=== PATIENT | male | born 1960 | race Two or more races ===

== ENCOUNTER → 2018-09-30 08:05 | Outpatient (CLI) | payer OTHER, SELFPAY ==
--- NOTE | 2018-09-30 08:11 | US_ITS ---
US soft tissue head and neck ITS.REASON: NECK MASS INDICATION: Palpable left-sided neck mass ORDERING PHYSICIAN: Davi Luke MD PATIENT AGE: 58 years Comparison: None FINDINGS: There is a hypoechoic somewhat irregular soft tissue mass in the left neck corresponding to the palpable abnormality measuring approximately 4.5 x 2.3 x 3 cm. Is difficult to determine the origin of this mass on the images submitted. The lesion does appear to contain some calcifications. This does not appear to be associated with the parotid or the submandibular gland and is along the anterior aspect of the thyroid gland. Cannot definitely exclude thyroid etiology from these images. Suggest CT of the neck without and with contrast for more thorough evaluation. IMPRESSION: Solid irregular hypoechoic left neck mass with some calcifications suspicious for neoplasm. Suggest CT of the neck without and with contrast for more thorough evaluation
== END ==
PROVIDERS: PCP Internal Medicine Adolescent Medicine; Visit Provider Internal Medicine Adolescent Medicine
DX: R22.1 Localized swelling, mass and lump, neck (principal)
CPT/HCPCS: 76536

== ENCOUNTER → 2018-10-14 12:04 | Outpatient (CLI) | payer OTHER, SELFPAY ==
[2018-10-14 12:27] LABS: Blood Urea Nitrogen 18 mg/dL (7-18); Creatinine,Serum 0.91 mg/dL (0.70-1.30); Estimated Glomerular Filt Rate 86 ml/min (>60); GFR (African American) 104 ML/MIN (>60)
--- NOTE | 2018-10-14 12:28 | CT_ITS ---
CT soft tissue neck wo/w con INDICATION: Palpable left-sided neck mass, abnormal ultrasound ITS.REASON: NECK MASS ORDERING PHYSICIAN: Davi Luke MD PATIENT AGE: 58 years COMPARISON: 09/30/2018 TECHNIQUE: Axial images are obtained without and with 75 mL Isovue-370. Sagittal and coronal reformatted images are reviewed as well. All CT scans at the facility use one or more dose reduction, viz: automated exposure control, ma/kV adjustment per patient size (including targeted exams where dose is matched to indication, i.e. head), or iterative reconstruction technique. FINDINGS: There is a 2.7 x 2.8 x 2 cm area of isoattenuation involving the left lobe of the thyroid gland with the area of coarse calcification posteriorly which measures 1 cm. This corresponds to the palpable abnormality and is consistent with a thyroid nodule/mass. No significant enhancement. No associated adenopathy. There are scattered small nodes within the jugulodigastric region on both sides which are nonspecific. The nasopharynx, oropharynx, and hypopharynx and laryngeal region have an unremarkable appearance. The parotid and submandibular glands are unremarkable. The epiglottis has an unremarkable appearance. There are degenerative changes in the cervical spine. The lung apices are clear. IMPRESSION: Palpable abnormality of the neck corresponds to a thyroid mass. This has a somewhat concerning appearance on the ultrasound. Fine-needle aspiration with sonographic guidance suggested for further evaluation.
== END ==
PROVIDERS: Visit Provider Internal Medicine Adolescent Medicine
DX: R22.1 Localized swelling, mass and lump, neck (principal)
CPT/HCPCS: 36415; 70492; 82565; 84520; Q9967

== ENCOUNTER → 2019-01-15 07:38 | Outpatient (CLI) | payer OTHER, SELFPAY ==
[2019-01-15 09:48] LABS: Chol/HDL Ratio 3.5 (1-3.5); Cholesterol 207 mg/dL (140-200); HDL Cholesterol 60 mg/dL (27-67); LDL Cholesterol 121 mg/dL (0-130); Triglycerides 130 mg/dL (30-200); VLDL Cholesterol 26 mg/dL (0-40)
[2019-01-15 09:58] LABS: Alanine Aminotransferase 36 U/L (12-78); Albumin/Globulin Ratio 1.2 (1.1-1.8); Alkaline Phosphatase 93 U/L (46-116); Anion Gap 13.4 mEq/L (5-15); Aspartate Amino Transferase 16 U/L (15-37); Bilirubin,Total 0.7 mg/dL (0.2-1.0); Blood Urea Nitrogen 18 mg/dL (7-18); Calcium 8.9 mg/dL (8.5-10.1); Carbon Dioxide 27 mmol/L (21.0-32.0); Chloride 104 mmol/L (98-107); Creatinine,Serum 0.95 mg/dL (0.70-1.30); Estimated Glomerular Filt Rate 82 ml/min (>60); Free T4 (Free Thyroxine) 1.03 ng/dl (0.76-1.46); GFR (African American) 99 ML/MIN (>60); Globulin 3.4 gm/dl (1.3-3.2); Glucose 101 mg/dL (74-106); Potassium 4.4 mmoL/L (3.5-5.1); Sodium 140 mmol/L (136-145); Thyroid Stimulating Hormone 0.26 uIU/ml (0.358-3.740); Total Protein,Serum 7.4 gm/dL (6.4-8.2)
[2019-01-17 16:45] LABS: Thyroglobulin IMA CHARGE YES; Thyroglobulin Level <1.0 IU/mL (0.0-0.9)
== END ==
PROVIDERS: PCP Internal Medicine Adolescent Medicine; Visit Provider Internal Medicine Endocrinology, Diabetes & Metabolism
DX: E89.0 Postprocedural hypothyroidism (principal); E78.49 Other hyperlipidemia; I10 Essential (primary) hypertension; Z85.850 Personal history of malignant neoplasm of thyroid
CPT/HCPCS: 36415; 80053; 80061; 84436; 84439; 84443; 86800

== ENCOUNTER → 2019-11-22 12:39 | Outpatient (CLI) | payer OTHER, SELFPAY ==
[2019-11-22 13:33] LABS: Basophils # 0.1 K/mm3 (0-0.2); Basophils % 1.6 % (0.1-2.0); Hematocrit 40.2 % (42.0-52.0); Hemoglobin 13.3 g/dL (14.1-18.0); Lymphocytes # 0.4 K/mm3 (0.7-4.5); Lymphocytes % 13.1 % (10-50); Mean Corpuscular HGB Conc 33.2 g/dL (31.8-35.4); Mean Corpuscular Hemoglobin 29.6 pg (27.0-31.2); Mean Corpuscular Volume 89.1 fl (80-94); Mean Platelet Volume 7.2 fl (7.4-10.4); Monocytes # 0.6 K/mm3 (0.1-1.0); Monocytes % 18.3 % (1.7-9.3); Neutrophils % 66.1 % (37.0-80.0); Platelet Count 157 K/mm3 (142-424); Red Blood Count 4.51 M/mm3 (4.60-6.20); Red Cell Distribution Width 13.3 % (11.5-17.5)
[2019-11-22 14:24] LABS: Alanine Aminotransferase 20 U/L (12-78); Albumin Level 3.9 gm/dL (3.4-5.0); Albumin/Globulin Ratio 1.3 (1.1-1.8); Alkaline Phosphatase 85 U/L (46-116); Aspartate Amino Transferase 15 U/L (15-37); Bilirubin,Total 0.5 mg/dL (0.2-1.0); Blood Urea Nitrogen 12 mg/dL (7-18); Calcium 8.5 mg/dL (8.5-10.1); Carbon Dioxide 28 mmol/L (21.0-32.0); Chloride 103 mmol/L (98-107); Creatinine,Serum 0.85 mg/dL (0.70-1.30); Estimated Glomerular Filt Rate 93 ml/min (>60); GFR (African American) 112 ML/MIN (>60); Glucose 89 mg/dL (74-106); Sodium 140 mmol/L (136-145); Thyroid Stimulating Hormone 0.01 uIU/ml (0.358-3.740); Total Protein,Serum 6.9 gm/dL (6.4-8.2)
== END ==
PROVIDERS: Visit Provider Nurse Practitioner Family
DX: R50.9 Fever, unspecified (principal); C73 Malignant neoplasm of thyroid gland; E89.0 Postprocedural hypothyroidism
CPT/HCPCS: 36415; 80053; 84443; 85025

== ENCOUNTER → 2021-07-13 10:49 | Outpatient (CLI) | payer OTHER, SELFPAY ==
[2021-07-13 15:16] LABS: Anion Gap 12.6 mEq/L (5-15); Blood Urea Nitrogen 19 mg/dl (9-20); Calcium 9.1 mg/dl (8.4-10.2); Carbon Dioxide 27 mmol/L (22.0-30.0); Chloride 105 mmol/L (98-107); Chol/HDL Ratio 3.2 (1-3.5); Cholesterol 204 mg/dl (140-200); Estimated Glomerular Filt Rate 99 ml/min (>60); GFR (African American) 120 ML/MIN (>60); Glucose 98 mg/dl (74-100); HDL Cholesterol 64 mg/dl (40-60); Potassium 4.6 mmoL/L (3.5-5.1); Sodium 140 mmol/L (136-145); Triglycerides 181 mg/dl (30-150); VLDL Cholesterol 36 mg/dL (0-40)
[2021-07-13 15:27] LABS: Direct LDL Cholesterol 94.88 mg/dL (100-129)
== END ==
PROVIDERS: Visit Provider Internal Medicine Adolescent Medicine
DX: I10 Essential (primary) hypertension (principal)
CPT/HCPCS: 36415; 80048; 80061

== ENCOUNTER 2023-08-14 10:48 | Day surgery (SDC) | payer OTHER, SELFPAY ==
[2023-08-11 14:11] VITALS: BMI 27.1
[2023-08-14 11:00] VITALS: BP 125/60; PULSE 68; RESP 16; TEMP 36.2; O2SAT 98
--- NOTE | 2023-08-14 11:15 | EXP.ANES.CKL ---
[facility] Disclaimer: The information contained in this section may have been updated after the patient was seen, as this information can be updated by other users. Medical History Lung cancer Prostate cancer Thyroid cancer Surgical History History of local excision of skin lesion Hx of prostatectomy Hx of total thyroidectomy Family History Other Family history of TIAs Family history of myocardial infarction Prostate cancer Social History Smoking Status: Former smoker alcohol intake: current substance use type: denies use current occupational status: employed Travel in the last 8 weeks: Inside the [place] caffeine: Yes [facility] Anesthesia Checklist Patient Identification Patient Identification: Arm Band Structural Data Admitted From: Home Planned Operative Procedure/s: Colonoscopy Consent for Planned Operative Procedure(s) Verified: Yes Verified Documents: Surgical Consent and History and Physical NPO Status Verified Time NPO: 00:00 Additional verifications Anesthesia Reactions: No Airway Assessment Mallampati Score:: Class II C-Spine Mobility Assessed: Yes TMJ Mobility Assessed: Yes Dentition: Edentulous Neurological Assessment Level of Consciousness: Awake and Alert Anesthesia Plan Anesthesia Risk discussed: Yes Anesthesia Plan: Verified ASA Class: II Anesthesia Type: MAC
[2023-08-14 11:32] VITALS: O2SAT 99
[2023-08-14 11:56] VITALS: BP 103/53; PULSE 53; RESP 17; TEMP 36.2; O2SAT 97
--- NOTE | 2023-08-14 11:56 | HMH.SCOPE ---
Procedure: Date: 08/14/23 Patient Date of :: 1960 Procedure Performed:: Total colonoscopy to terminal ileum with polypectomy using biopsy forceps Indications:: 63-year-old male with history of of thyroid, prostate, lung cancer. He did previously undergo colonoscopy years ago. He believes he had a polyp removed. He states that oncologist had recommended colonoscopy. He was scheduled for surveillance colonoscopy. Patient does give a history consistent with some hemorrhoid prolapse with bowel movements. Performing Provider:: Jorge Luis Stone MD Referring Provider:: Ted Howard MD Sedation:: MAC sedation Procedure:: Patient history was obtained and appropriate physical examination was performed. Patient's medications and allergies were reviewed. Informed consent was obtained after explaining the benefits, alternatives, and risks of the procedure including, but not limited to, bleeding, perforation, missed lesions, and adverse reaction to anesthesia medications. Patient was transported to endoscopy procedure room. Patient was connected to monitoring devices. Throughout the procedure the patient's blood pressure, pulse, and oxygen saturations were monitored continuously. Patient identification and planned procedure were verified by the staff. Patient was positioned in lateral decubitus position. Digital anorectal exam was performed. Variable stiffness Olympus colonoscope was inserted and advanced under direct visualization to the cecum. Adequacy of the colonic preparation was noted. The colonoscope was advanced a short distance into the terminal ileum. The colonoscope was then slowly withdrawn while carefully examining the color, texture, anatomy, and integrity of the mucosoa circumferentially. Within the rectum retroflexion was performed. Colonoscope was then withdrawn. . Colonic preparation was excellent. There was a tiny diminutive polyp in the distal sigmoid removed with cold biopsy forceps. Retroflexion within the rectum revealed minor internal prolapsing hemorrhoids. . Findings:: Diminutive distal sigmoid polyp Prolapsing hemorrhoids Recommendations:: Repeat colonoscopy pending pathology. Likely 5 to 7 years Complications:: None immediate Estimated blood obtained (mL): 1 Colonoscopy Component Colonoscopy Component Was a colonoscopy performed during today's procedure?: Yes Recommended follow up colonoscopy of at least 10 years?: No If no, follow up colonoscopy recommended in ___ years?: 5-7 Reason for not recommending >/= 10 yr follow-up interval?: Polyp
[2023-08-14 12:06] VITALS: BP 119/77; PULSE 56; RESP 16; O2SAT 98
[2023-08-14 12:16] VITALS: BP 138/88; PULSE 54; RESP 17; O2SAT 98
[2023-08-14 12:26] VITALS: BP 155/92; PULSE 56; RESP 17; O2SAT 99
== END 2023-08-14 12:30 | disposition home or self-care (01) ==
PROVIDERS: PCP Internal Medicine Adolescent Medicine; Visit Provider Surgery
PROC: 0DJD8ZZ Inspection of Lower Intestinal Tract, Via Natural or Artificial Opening Endoscopic (ICD-10-PCS; CPT 45380; principal; 2023-08-14 11:30)
DX: Z12.11 Encounter for screening for malignant neoplasm of colon (principal); Z86.010 Personal history of colon polyps; Z85.850 Personal history of malignant neoplasm of thyroid; Z85.118 Personal history of other malignant neoplasm of bronchus and lung; K64.8 Other hemorrhoids; K63.5 Polyp of colon
CPT/HCPCS: 45380; J2704

== ENCOUNTER 2023-08-23 11:05 | Emergency (ER) | payer OTHER, SELFPAY ==
[2023-08-23 11:07] VITALS: BP 139/67; PULSE 63; RESP 20; TEMP 36.7; O2SAT 98; BMI 28.1
--- NOTE | 2023-08-23 11:13 | HMH.EDGENADL ---
Discharge Plan Disposition Patient Disposition: Home, Self-Care Condition: Good Prescriptions Prescriptions: New dibucaine [Hemorrhoidal-Analgesic] 1 % ointment 1 applic topical QID Qty: 30 0RF No Action multivitamin Tablet 1 tab PO DAILY loperamide 2 mg Capsule 2 mg PO Q4H PRN (Reason: Diarrhea) Rx Instructions: administer after each loose stool until symptoms controlled; do not exceed 8 mg per 24 hrs pravastatin 40 mg Tablet 40 mg PO DAILY doxazosin 8 mg Tablet 8 mg PO HS amlodipine 10 mg Tablet 10 mg PO DAILY levothyroxine 150 mcg Tablet 150 mcg PO DAILY labetalol 300 mg Tablet 300 mg PO BID losartan 100 mg Tablet 100 mg PO DAILY sorafenib [Nexavar] 200 mg Tablet 200 mg PO BID omeprazole 20 mg Tablet,Delayed Release (Dr/Ec) 20 mg PO DAILY aspirin 81 mg Capsule 81 mg PO DAILY Referrals Follow up/Referrals: Ted Howard MD [Primary Care Provider] - See instructions Activity Restrictions/Add. Instructions Additional Instructions/Restrictions: We will message Dr. Stone's office to try to reschedule your appointment, I would recommend you call his office as well. I have prescribed prescription strength hemorrhoid ointment. Please use as needed. Please return with any new or worsening symptoms. Clinical Impressions Clinical Impression: Hemorrhoid thrombosis Instructions Patient Instructions: Hemorrhoids, DI for Hemorrhoids Discharge ED Provider: Nathaniel Aguilar Adult HPI General Chief complaint: PAIN Stated complaint: Hemorrhoid Time Seen by Provider: 08/23/23 11:13 History of Present Illness HPI narrative: The patient presents with a chief complaint of a painful hemorrhoid. They report having pushed it back in this morning and recently had a colonoscopy done with Dr. Rosario, during which a polyp was identified but not removed. The patient has a history of dealing with this issue and is currently on chemotherapy pills. They deny taking any blood thinners but mention that Nixivir, which they are taking, has blood-thinning properties. The patient's oncologist team at [facility] advised stopping the medication 10 days prior and 13 days after any potential hemorrhoid removal procedure. Dr. Rosario did not recommend removing the hemorrhoid, stating it was not that large. The patient reports experiencing pain and feeling nauseous this morning due to the discomfort caused by the hemorrhoid. They mention that the size of the hemorrhoid has increased significantly today. The patient denies any other symptoms such as bleeding, fever, or chills. They have no known allergies to medications. Related Data Home Medications Medication Instructions Recorded Confirmed amlodipine 10 mg tablet 10 mg PO DAILY bp 08/14/23 08/14/23 aspirin 81 mg capsule 81 mg PO DAILY Blood Thinner 08/14/23 08/14/23 doxazosin 8 mg tablet 8 mg PO HS . 08/14/23 08/14/23 labetalol 300 mg tablet 300 mg PO BID bp 08/14/23 08/14/23 levothyroxine 150 mcg tablet 150 mcg PO DAILY thyroid 08/14/23 08/14/23 loperamide 2 mg capsule 2 mg PO Q4H PRN Diarrhea 08/14/23 08/14/23 losartan 100 mg tablet 100 mg PO DAILY bp 08/14/23 08/14/23 multivitamin 1 tab PO DAILY Supplement 08/14/23 08/14/23 omeprazole 20 mg tablet,delayed 20 mg PO DAILY gerd 08/14/23 08/14/23 release pravastatin 40 mg tablet 40 mg PO DAILY Cholesterol 08/14/23 08/14/23 sorafenib 200 mg tablet (Nexavar) 200 mg PO BID chemo 08/14/23 08/14/23 Previous Rx's Medication Instructions Recorded dibucaine 1 % topical ointment 1 applic topical QID #30 grams 08/23/23 (Hemorrhoidal-Analgesic) Allergies Allergy/AdvReac Type Severity Reaction Status Date / Time No Known Allergies Allergy Verified 08/14/23 10:57 [facility] Disclaimer: The information contained in this section may have been updated after the patient was seen, as this information can be updated by other users. Medical Vt
--- NOTE | 2023-08-23 11:15 | PC.NURSE ---
Pt placed in a gown and given warm blankets for comfort
[2023-08-23 11:23] VITALS: BP 123/61; PULSE 63; O2SAT 97
--- NOTE | 2023-08-23 11:34 | PC.NURSE ---
Dr. Aguilar at bedside for exam
--- NOTE | 2023-08-23 12:13 | PC.NURSE ---
Dr. Aguilar at bedside discussing POC and d/c
[2023-08-23 12:16] VITALS: BP 133/91; PULSE 68; RESP 18; TEMP 36.7; O2SAT 98
== END 2023-08-23 12:16 | disposition home or self-care (01) ==
PROVIDERS: Emergency Provider Emergency Medicine; PCP Internal Medicine Adolescent Medicine
DX: K64.5 Perianal venous thrombosis (principal); R11.0 Nausea; F17.210 Nicotine dependence, cigarettes, uncomplicated; C80.1 Malignant (primary) neoplasm, unspecified; C79.89 Secondary malignant neoplasm of other specified sites; Z92.21 Personal history of antineoplastic chemotherapy
CPT/HCPCS: 99283

== ENCOUNTER 2024-04-18 07:00 | Outpatient (RCR) | payer OTHER, SELFPAY ==
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
== END 2024-04-20 14:00 | disposition home or self-care (01) ==
LOC: PT 07:00
PROVIDERS: Visit Provider Internal Medicine Adolescent Medicine
DX: M54.9 Dorsalgia, unspecified (principal); M54.6 Pain in thoracic spine
CPT/HCPCS: 20560; 97010; 97110; 97112; 97140; 97163

== ENCOUNTER 2024-07-10 21:19 | Emergency (ER) | payer OTHER, SELFPAY ==
[2024-07-10 21:19] VITALS: BP 139/92; PULSE 76; RESP 16; TEMP 36.6; O2SAT 98; BMI 26.6
[2024-07-10 21:30] VITALS: BP 143/89; PULSE 78; O2SAT 96
--- NOTE | 2024-07-10 21:32 | HMH.EDGENADL ---
Discharge Plan Disposition Patient Disposition: Home, Self-Care Condition: Good Prescriptions Prescriptions: No Action multivitamin Tablet 1 tab PO DAILY loperamide 2 mg Capsule 2 mg PO Q4H PRN (Reason: Diarrhea) Rx Instructions: administer after each loose stool until symptoms controlled; do not exceed 8 mg per 24 hrs pravastatin 40 mg Tablet 40 mg PO DAILY doxazosin 8 mg Tablet 8 mg PO HS amlodipine 10 mg Tablet 10 mg PO DAILY levothyroxine 150 mcg Tablet 150 mcg PO DAILY labetalol 300 mg Tablet 300 mg PO BID losartan 100 mg Tablet 100 mg PO DAILY sorafenib [Nexavar] 200 mg Tablet 200 mg PO BID omeprazole 20 mg Tablet,Delayed Release (Dr/Ec) 20 mg PO DAILY aspirin 81 mg Capsule 81 mg PO DAILY dibucaine [Hemorrhoidal-Analgesic] 1 % ointment 1 applic topical QID Qty: 30 0RF Referrals Follow up/Referrals: Ted Howard MD [Primary Care Provider] - See instructions Activity Restrictions/Add. Instructions Additional Instructions/Restrictions: You were evaluated in the ER and are appropriate for discharge at this time. Take all your home medications as previously prescribed, follow-up as soon as possible with oncology as well as with your primary care doctor. Return to the ER with any new, worsening, or otherwise concerning symptoms. Clinical Impressions Clinical Impression: Right-sided headache, Medication side effect Print Language Print Language: Greek Discharge ED Provider: Gibran Gonzales General Adult HPI <BING Daniel - Last Filed: 07/10/24 22:52> General Chief complaint: Dizziness Stated complaint: Dizziness Time Seen by Provider: 07/10/24 21:31 History of Present Illness HPI narrative: Patient presents for evaluation of dizziness and a headache. Patient has a past medical history of widely metastatic poorly differentiated thyroid cancer currently under the care of the [facility]. Patient however reports that he was his normal state of health most of the day and approximately an hour to 2 hours prior to arrival began feeling very very hot diaphoretic followed by a right-sided headache that he believes originates from the right side of his neck. He also reports that his vision got blurry bilaterally during this episode but that is now resolved. Patient did have an MRI approximately 4 months ago to assess for progression of disease intracranially which was reportedly clean. He denies fever chills hemoptysis hematochezia melena vomiting or diarrhea blood was nauseated due to the pain. Related Data Home Medications ?Medication ?Instructions ?Recorded ?Confirmed amlodipine 10 mg tablet 10 mg PO DAILY bp 08/14/23 08/14/23 aspirin 81 mg capsule 81 mg PO DAILY Blood Thinner 08/14/23 08/14/23 doxazosin 8 mg tablet 8 mg PO HS . 08/14/23 08/14/23 labetalol 300 mg tablet 300 mg PO BID bp 08/14/23 08/14/23 levothyroxine 150 mcg tablet 150 mcg PO DAILY thyroid 08/14/23 08/14/23 loperamide 2 mg capsule 2 mg PO Q4H PRN Diarrhea 08/14/23 08/14/23 losartan 100 mg tablet 100 mg PO DAILY bp 08/14/23 08/14/23 multivitamin 1 tab PO DAILY Supplement 08/14/23 08/14/23 omeprazole 20 mg tablet,delayed 20 mg PO DAILY gerd 08/14/23 08/14/23 release pravastatin 40 mg tablet 40 mg PO DAILY Cholesterol 08/14/23 08/14/23 sorafenib 200 mg tablet (Nexavar) 200 mg PO BID chemo 08/14/23 08/14/23 Previous Rx's ?Medication ?Instructions ?Recorded dibucaine 1 % topical ointment 1 applic topical QID #30 grams 08/23/23 (Hemorrhoidal-Analgesic) Allergies Allergy/AdvReac Type Severity Reaction Status Date / Time No Known Allergies Allergy Verified 08/14/23 10:57 [facility] <BING Daniel - Last Filed: 07/10/24 22:52> [facility] Disclaimer: The information contained in this section may have been updated after the patient was seen, as this information can be updated by other users. Medical History (Updated 07/11/24 @
--- NOTE | 2024-07-10 21:44 | CT_ITS ---
PROCEDURE INFORMATION: Exam: CTA Head With Contrast, Arteriography Exam date and time: 07/10/2024 11:07 PM Age: 64 years old Clinical indication: Pain; Headache; Additional info: Headache, metastatic thyroid cancer TECHNIQUE: Imaging protocol: Computed tomographic angiography of the head with contrast. Exam focused on the arteries. 3D rendering (Not supervised by radiologist): MIP and/or 3D reconstructed images were created by the technologist. Radiation optimization: All CT scans at this facility use at least one of these dose optimization techniques: automated exposure control; mA and/or kV adjustment per patient size (includes targeted exams where dose is matched to clinical indication); or iterative reconstruction. Contrast material: ISOUVE 370; Contrast volume: 80 ml; Contrast route: INTRAVENOUS (IV); COMPARISON: CT ANGIO HEAD 07/10/2024 11:07 PM FINDINGS: ANTERIOR CIRCULATION: Right internal carotid artery: Intracranial segment is patent with no significant stenosis. No aneurysm. Right middle cerebral artery: No occlusion or significant stenosis. No aneurysm. Right anterior cerebral artery: No occlusion or significant stenosis. No aneurysm. Left internal carotid artery: Intracranial segment is patent with no significant stenosis. No aneurysm. Left middle cerebral artery: No occlusion or significant stenosis. No aneurysm. Left anterior cerebral artery: No occlusion or significant stenosis. No aneurysm. POSTERIOR CIRCULATION: Right vertebral artery: No occlusion or significant stenosis. No aneurysm. Left vertebral artery: No occlusion or significant stenosis. No aneurysm. Basilar artery: No occlusion or significant stenosis. No aneurysm. Right posterior cerebral artery: No occlusion or significant stenosis. No aneurysm. Left posterior cerebral artery: No occlusion or significant stenosis. No aneurysm. Brain: No definite mass, mass effect, or midline shift. Cerebral ventricles: No ventriculomegaly. Bones/joints: Unremarkable. No acute fracture. Soft tissues: Unremarkable. IMPRESSION: No large vessel stenosis or occlusion.
--- NOTE | 2024-07-10 21:44 | CT_ITS ---
PROCEDURE INFORMATION: Exam: CT Head Without Contrast Exam date and time: 07/10/2024 10:50 PM Age: 64 years old Clinical indication: Pain; Headache; Additional info: Headache, metastatic thyroid cancer TECHNIQUE: Imaging protocol: Computed tomography of the head without contrast. Radiation optimization: All CT scans at this facility use at least one of these dose optimization techniques: automated exposure control; mA and/or kV adjustment per patient size (includes targeted exams where dose is matched to clinical indication); or iterative reconstruction. COMPARISON: [facility] soft tissue head and neck 09/30/2018 8:11 AM FINDINGS: Brain: Normal. No hemorrhage. Unremarkable white matter. No mass effect. Cerebral ventricles: No ventriculomegaly. Paranasal sinuses: Visualized sinuses are unremarkable. No fluid levels. Mastoid air cells: Visualized mastoid air cells are well aerated. Bones: Unremarkable. No acute fracture. Soft tissues: Unremarkable. IMPRESSION: No acute intracranial abnormality.
--- NOTE | 2024-07-10 21:44 | CT_ITS ---
PROCEDURE INFORMATION: Exam: CTA Neck With Contrast Exam date and time: 07/10/2024 11:07 PM Age: 64 years old Clinical indication: Pain; Headache; Additional info: Headache, metastatic thyroid cancer TECHNIQUE: Imaging protocol: Computed tomographic angiography of the neck with contrast. Exam focused on the cervical segments of the vasculature. 3D rendering (Not supervised by radiologist): MIP and/or 3D reconstructed images were created by the technologist. Radiation optimization: All CT scans at this facility use at least one of these dose optimization techniques: automated exposure control; mA and/or kV adjustment per patient size (includes targeted exams where dose is matched to clinical indication); or iterative reconstruction. Contrast material: ISOUVE 370; Contrast volume: 80 ml; Contrast route: INTRAVENOUS (IV); COMPARISON: [facility] CT soft tissue neck wo/w con 10/14/2018 12:55 PM FINDINGS: Right common carotid artery: No stenosis. No dissection or occlusion. Right internal carotid artery: No stenosis of the extracranial segment. No dissection or occlusion. Right external carotid artery: No occlusion or stenosis of the origin. Left common carotid artery: No stenosis. No dissection or occlusion. Left internal carotid artery: No stenosis of the extracranial segment. No dissection or occlusion. Left external carotid artery: No occlusion or stenosis of the origin. Right vertebral artery: No stenosis. No dissection or occlusion. Left vertebral artery: No stenosis. No dissection or occlusion. Soft tissues: Normal. No significant soft tissue swelling. Bones/joints: No acute fracture. IMPRESSION: No stenosis or occlusion. REFERENCES: NASCET CRITERIA. The degree of stenosis in the cervical segment of the internal carotid artery is based on NASCET criteria. Normal is no stenosis. Mild is less than 50% stenosis. Moderate is 50-69% stenosis. Severe is 70% to 99% stenosis. Total occlusion is no detectable patent lumen.
[2024-07-10 21:53] LABS: Albumin Level 4.2 g/dl (3.5-5.0); Chloride 106 mmol/L (98-107); Sodium 137 mmol/L (136-145)
[2024-07-10 21:56] LABS: Alanine Aminotransferase 55 U/L (12-78); Albumin/Globulin Ratio 1.5 (1.1-1.8); Alkaline Phosphatase 75 U/L (38-126); Aspartate Amino Transferase 51 U/L (17-59); Basophils % 0.7 % (0.1-2.0); Bilirubin,Total 0.6 mg/dl (0.2-1.3); Blood Urea Nitrogen 22 mg/dl (9-20); Carbon Dioxide 26 mmol/L (22.0-30.0); Creatinine Clearance Estimated 88 mL/min (50-200); Eosinophils # 0.2 K/mm3 (0.0-0.4); Eosinophils % 3.6 % (0.1-12.0); Estimated Glomerular Filt Rate 86 ml/min (>60); GFR (African American) 103 ML/MIN (>60); Globulin 2.8 g/dL (1.3-3.2); Glucose 153 mg/dl (74-100); Hematocrit 42.2 % (42.0-52.0); Hemoglobin 13.8 g/dL (14.1-18.0); Lymphocytes # 1.1 K/mm3 (0.7-4.5); Lymphocytes % 19.8 % (10-50); Mean Corpuscular HGB Conc 32.7 g/dL (31.8-35.4); Mean Corpuscular Hemoglobin 29.2 pg (27.0-31.2); Mean Corpuscular Volume 89.3 fl (80-94); Mean Platelet Volume 7.8 fl (7.4-10.4); Monocytes # 0.4 K/mm3 (0.1-1.0); Monocytes % 7.9 % (1.7-9.3); Neutrophils # 3.8 K/mm3 (1.8-7.8); Neutrophils % 68.1 % (37.0-80.0); Platelet Count 149 K/mm3 (142-424); Red Blood Count 4.73 M/mm3 (4.60-6.20); Red Cell Distribution Width 15.1 % (11.5-17.5); White Blood Count 5.6 K/mm3 (4.8-10.8)
[2024-07-10 22:00] VITALS: BP 150/90; PULSE 75; O2SAT 98
[2024-07-10 22:30] VITALS: BP 161/101; PULSE 80; O2SAT 98
--- NOTE | 2024-07-10 22:48 | PC.NURSE ---
Patient's visitor at bedside called out reporting that patient has restless legs and discomfort that started after receiving medications. Patient's movements are suggestive of extrapyramidal movements as an adverse reaction to compazine. Notified primary provider, orders received. Notified primary nurse.
--- NOTE | 2024-07-10 23:40 | PC.NURSE ---
Patient reports mild improvement of extrapyramidal symptoms, notified provider, orders received.
[2024-07-11 00:43] LABS: Troponin I < 0.01 ng/ml (0.00-0.034)
[2024-07-11 02:05] LABS: Troponin I < 0.01 ng/ml (0.00-0.034)
--- NOTE | 2024-07-11 02:18 | PC.NURSE ---
This RN ambulated patient. He was able to walk around nurse's station unassisted. notified.
[2024-07-11 02:21] VITALS: BP 109/70; PULSE 64; RESP 16; TEMP 36.9; O2SAT 97
== END 2024-07-11 02:29 | disposition home or self-care (01) ==
PROVIDERS: Emergency Medicine; Physician Assistant; Emergency Provider Emergency Medicine; PCP Internal Medicine Adolescent Medicine
DX: R51.9 Headache, unspecified (principal); R42 Dizziness and giddiness; R61 Generalized hyperhidrosis; H53.8 Other visual disturbances; C73 Malignant neoplasm of thyroid gland; F17.200 Nicotine dependence, unspecified, uncomplicated; T43.3X5A Adverse effect of phenothiazine antipsychotics and neuroleptics, initial encounter
CPT/HCPCS: 70450; 70496; 70498; 80053; 83735; 84484; 85025; 93005; 96361; 96374; 96375; 96376; 99285; J0131; J0780; J1100; J1200; J7120; Q9967